=== PATIENT | female | born 1975 | race Two or more races ===

== ENCOUNTER 2016-08-28 05:32 | Day surgery (SDC) | payer OTHER ==
[2016-08-21 10:06] LABS: HEMATOCRIT 37.1 % (36.0-47.0); HEMOGLOBIN 12.2 g/dL (12.0-15.5); HGB HCT DIFFERENCE -0.5; MEAN CORPUSCULAR HEMOGLOBIN 25.3 pg (27.0-33.4); MEAN CORPUSCULAR HGB CONC 32.7 g/dL (32.0-36.0); MEAN CORPUSCULAR VOLUME 77 fl (80-97); RED CELL DISTRIBUTION WIDTH 14.5 % (11.5-14.0); WHITE BLOOD COUNT 5.2 10^3/uL (4.0-10.5)
[2016-08-21 10:10] LABS: PROTHROMBIN TIME 13.2 SEC (11.4-15.4)
[2016-08-21 10:11] LABS: PARTIAL THROMBOPLASTIN TIME 26.4 SEC (23.5-35.8)
--- NOTE | 2016-08-21 20:02 | EKG REPORT ---
SEVERITY:- NORMAL ECG - SINUS RHYTHM : Confirmed by: Carlos Rodriguez 21-Aug-2016 20:01:21
[~2016-08-28 05:32] MED LIST: CEFAZOLIN 2 GM/D5W RTU 2 GM/50 ML RTUPB IV PRN; LIDOCAINE 0.5% INJ-PF (5 MG/ML) 50 ML SDV INJ PRN; RINGERS SOLUTION,LACTATED 1,000 ML IV PRN
[2016-08-28] MEDS ORDERED: EPHEDRINE SULFATE INJ 50 MG/1 ML AMPULE ONE (06:47)
[2016-08-28] MEDS ORDERED: FENTANYL CITRATE INJ/PF 250 MCG/5 ML AMPULE ONE (06:47)
[2016-08-28] MEDS ORDERED: MIDAZOLAM 2 MG/2 ML INJ ONE (06:47)
[2016-08-28] MEDS ORDERED: PROPOFOL INJ 200 MG/20 ML VIAL IV ONE (06:48)
[2016-08-28] MEDS ORDERED: DEXMEDETOMIDINE INJ 80 MCG/20 ML VIAL IV ONE (06:48)
[2016-08-28] MEDS ORDERED: FAMOTIDINE INJ/PF 20 MG/2 ML SDV IV ONE (06:59)
[2016-08-28] MEDS ORDERED: SCOPOLAMINE HYDROBROMIDE 1.5 MG PATCH.TD72 ONE (07:01)
[2016-08-28] MEDS ORDERED: BUPIVACAINE HCL 0.25 % INJ/PF (2.5 MG/1 ML) 30 ML VIAL ONE (07:16)
[2016-08-28] MEDS ORDERED: ACETAMINOPHEN 100 ML IV ONE (07:18)
[2016-08-28 07:35] LABS: HEMATOCRIT 35.4 % (36.0-47.0); HEMOGLOBIN 11.6 g/dL (12.0-15.5); HGB HCT DIFFERENCE -0.6; MEAN CORPUSCULAR HEMOGLOBIN 25.3 pg (27.0-33.4); MEAN CORPUSCULAR HGB CONC 32.9 g/dL (32.0-36.0); MEAN CORPUSCULAR VOLUME 77 fl (80-97); RED CELL DISTRIBUTION WIDTH 14.5 % (11.5-14.0); WHITE BLOOD COUNT 5.4 10^3/uL (4.0-10.5)
[2016-08-28 07:53] LABS: ANION GAP 12 (5-19); BLOOD UREA NITROGEN 15 mg/dL (7-20); CALCIUM 9.6 mg/dL (8.4-10.2); CARBON DIOXIDE 24 mmol/L (22-30); CHLORIDE 106 mmol/L (98-107); GLUCOSE 106 mg/dL (75-110); POTASSIUM 4.4 mmol/L (3.6-5.0); SODIUM 141.5 mmol/L (137-145)
[2016-08-28] MEDS ORDERED: MORPHINE SULFATE 10 MG/ML INJ IV PRN ×3 (08:02→11:23)
[2016-08-28] MEDS ORDERED: PROMETHAZINE HCL INJ 25 MG/1 ML VIAL IV PRN ×3 (08:02→11:25)
[2016-08-28] MEDS ORDERED: FENTANYL CITRATE INJ/PF 100 MCG/2 ML AMPUL IV PRN ×3 (08:02)
[2016-08-28] MEDS ORDERED: MEPERIDINE HCL/PF INJ 25 MG/1 ML DISP.SYRIN IV PRN (08:02)
[2016-08-28] MEDS ORDERED: OXYCODONE-ACETAMINOPHEN 5-325 MG TABLET PO PRN ×2 (08:02)
[2016-08-28] MEDS ORDERED: DIPHENHYDRAMINE HCL 50 MG/ML VIAL IV PRN (08:02)
[2016-08-28] MEDS ORDERED: ONDANSETRON HCL INJ/PF 4 MG/2 ML SDV IV PRN ×3 (08:02→12:55)
[2016-08-28] MEDS ORDERED: KETOROLAC TROMETHAMINE INJ/PF 30 MG/1 ML SDV ONE (10:30)
[2016-08-28] MEDS ORDERED: HYDROCODONE/ACETAMINOPHEN 5-325 MG TABLET PO PRN (11:22)
[2016-08-28] MEDS ORDERED: DEXAMETHASONE SOD PHOSPHATE INJ 4 MG/1 ML VIAL ONE (12:00)
[2016-08-28] MEDS ORDERED: NEOSTIGMINE METHYLSULFATE 10 MG/10 ML VIAL ONE (12:00)
[2016-08-28] MEDS ORDERED: SUCCINYLCHOLINE CHLORIDE INJ 200 MG/10 ML VIAL ONE (12:00)
[2016-08-28] MEDS ORDERED: LIDOCAINE 2% INJ-PF (20 MG/ML) 10 ML AMPUL ONE (12:00)
[2016-08-28] MEDS ORDERED: PHENYLEPHRINE HCL INJ/PF 10 MG/1 ML SDV ONE (12:00)
[2016-08-28] MEDS ORDERED: METOCLOPRAMIDE HCL INJ/PF 10 MG/2 ML SDV ONE (12:00)
[2016-08-28] MEDS ORDERED: GLYCOPYRROLATE INJ 0.4 MG/2 ML VIAL ONE (12:00)
[2016-08-28] MEDS ORDERED: ONDANSETRON HCL INJ/PF 4 MG/2 ML SDV ONE (12:00)
[2016-08-28] MEDS ORDERED: VECURONIUM BROMIDE INJ 10 MG VIAL IV ONE (12:00)
[2016-08-28] MEDS: KETOROLAC TROMETHAMINE INJ/PF 30 MG/1 ML SDV IV SCH (17:55)
[2016-08-28] MEDS ORDERED: MAGNESIUM OXIDE PO SCH (18:00)
[2016-08-28] MEDS ORDERED: DOCUSATE SODIUM 100 MG CAPSULE PO SCH ×2 (22:00)
[2016-08-29] MEDS: KETOROLAC TROMETHAMINE INJ/PF 30 MG/1 ML SDV IV SCH ×2 (00:52→05:49)
[2016-08-29 08:49] VITALS: BP 131/86
[2016-08-29] MEDS ORDERED: NORETHINDRONE ACETATE 5 MG PO SCH (10:00)
[2016-08-29] MEDS ORDERED: BENAZEPRIL HCL 20 MG TABLET PO SCH (10:00)
[2016-08-29] MEDS ORDERED: CETIRIZINE 10 MG TABLET PO SCH (10:00)
[2016-08-29] MEDS ORDERED: CARVEDILOL 12.5 MG TABLET PO SCH (10:00)
--- NOTE | 2016-09-05 13:44 | OPERATIVE REPORT E ---
Operative Report NAME: FARIDEH NELSON : 1975 AGE: 40Y DATE OF SURGERY: 08/28/2016 ROOM: 223 INDICATIONS: This is a 40-year-old female with a symptomatic fibroid uterus, but normal endometrial biopsy and Pap, who has had heavy menstrual bleeding in the past requiring . After discussing options for treatment, the patient desires definitive management for large known fibroid uterus approximately 14 weeks in size. After discussing the risks, benefits, alternatives, and indications, the patient desires to proceed with robotic-assisted total laparoscopic hysterectomy and bilateral salpingectomy for removal of large fibroid uterus. PREOPERATIVE DIAGNOSES: 1. Symptomatic fibroid uterus. 2. Anemia. POSTOPERATIVE DIAGNOSES: 1. Symptomatic fibroid uterus. 2. Anemia. OPERATIONS: 1. Robotic-assisted total laparoscopic hysterectomy and bilateral salpingectomy. 2. Robotic myomectomy. 3. Cystoscopy. SURGEON: ALEXEI PARMAR M.D. MOTION PICTURE NARRATOR: Lara Andersen M.D. ESTIMATED BLOOD LOSS: 150. TOTAL FLUIDS: 1500. URINE OUTPUT: 200. FINDINGS: 1. Large fibroid uterus, large posterior fibroid approximately 8 cm in diameter. 2. Normal-appearing bilateral ovaries and bilateral fallopian tubes. 3. Normal bladder with normal-appearing bilateral ureteral orifice with flow identified bilaterally postoperatively. 4. Normal abdominal cavity, normal omentum, normal small bowel and large bowel and liver with normal bilateral ureters without evidence of hydronephrosis. SPECIMENS: Uterus and separate large fibroid. PROCEDURE IN DETAIL: After confirming consent with the patient in the preoperative holding area, the patient was taken to the main OR where general anesthesia was found to be adequate. The patient was then prepped and draped in a sterile fashion and placed in the low lithotomy position on a Gelfoam pad and placed in steep Trendelenburg without any sliding noted. The patient was meticulously positioned making sure no impingements on the lower extremity nerves and arms were tucked, and the patient was placed with a padded chest wrap across her chest. At this point in time, an operative timeout was performed. The patient received 2 g of Ancef prior to incision. Attention was turned to the patient's vagina where the anterior lip of the cervix was grasped with a single-toothed tenaculum and the uterus was sounded to approximately 10 cm. A medium Vcare uterine manipulator was then brought onto the field and tip placed in the fundus and inflated. The Vcare cup was then attached to the cervix and all instruments were then removed from the vagina. Attention was turned to the patient's abdomen where a site approximately 5 cm superior to the umbilicus was infused with 0.25% Marcaine to the midline. A 12 mm incision was made vertically while tenting up the anterior abdominal wall. A Veress needle was then placed in the abdominal cavity with an appropriate drop in pressure to approximately 2 mmHg. The abdomen was then insufflated to approximately 15 mmHg with gas on high flow after which a 12 mm trocar was then placed into the abdomen blindly and then a laparoscope was placed to confirm proper placement without injury to intra-abdominal contents. At this point in time, the abdominal viscera and omentum were inspected and noted to be without injury and the findings were noted as above. Attention was then turned to the patient's right-hand side approximately 9 cm to the right and 2 cm superior to the midline incision. A spot was identified and infused with 0.25% Marcaine and approximately 10 mm incision was made for placement of 8 mm AirSeal port, which was placed under direct visualization without difficulty. Attention was then turned to the right lower quadrant approximately 7 cm lateral and inferior to the assistant distribution manager trocar port and infused with 0.25% Marcaine, marked and incised and a #1, 8 mm robotic port placed under direct visualization. Attention was then turned to the left-hand side where the #2 robotic port was then placed approximately 8 cm laterally and 2 cm superior to the midline incision after being infused with 0.25% Marcaine, marked and incised, and lastly, the #3 robotic arm was then placed approximately 10 cm lateral inferior to the #2 robotic arm infused with 0.25% Marcaine, marked and incised and placed under direct visualization without evidence of injury. At this point in time, robotic ports were all in place. The patient was placed in steep Trendelenburg position in preparation for docking. The robot was then side docked in a normal fashion. The #1 arm was armed with monopolar scissors, the #2 arm with fenestrated bipolar graspers, and the #3 arm with a Prograf. Attention was then turned to the uterus. Starting on the right-hand side, the fallopian tube was from the mesosalpinx using a combination of bipolar cautery and monopolar scissors. Once at the utero-ovarian ligament, it was cauterized x3 and taken down with monopolar scissors adjacent to the uterus as the anatomy was distorted on both the right- and left-hand side due to large fibroid uterus. The right broad ligament was then identified and sized and taken down anteriorly and posteriorly. The bladder flap was created on the anterior portion and then taken down to estimated junction of the internal os on the right-hand side. The broad ligament was opened on the right-hand side and the uterine artery was skeletonized down to the level of the Vcare cup manipulator and the right uterine artery coagulated x3 and cut. Attention was then turned to the left-hand side where the left fallopian tube was then from the mesosalpinx in a similar fashion using bipolar cautery and monopolar scissors. The left uterine ovarian artery was then coagulated x3 and incised and monopolar scissors taken down towards the broad ligament. The broad ligament was taken down on the left-hand side similar to the right-hand side and then the broad ligament opened. The broad ligament was then opened anterior and posterior and skeletonized and the left uterine artery was easily coagulated x3 on the left hand side and then cut. At this point in time, the cardinal ligaments were taken down both on the right hand and left-hand side, making sure to stay medial to the uterine Reji cup, allowing the cardinal ligament to fall laterally away from the uterus, making sure to maintain good distance from the ureters, which were identified prior to taking down the cardinal ligament. The incisions were noted across the Reji cup to bladder flap down the left-hand side to right-hand side and then the bladder swept inferiorly below the level of . At this point in time, a small incision was made anteriorly to verify position of the Vcare cup. Prior to making colpotomy, attention was turned to the right fibroid of the posterior portion of the uterus and myomectomy of the large fibroid posterior side was then performed using monopolar scissors and the large fibroid that was removed placed in the right pelvic brim. At this point in time, colpotomy was made circumferentially starting at anterior side and going to counterclockwise fashion until the uterus was from the top of the vagina. At this point in time, was able to grasp the uterus, and using assistance from the robot, the uterus was delivered vaginally after which the large posterior fibroid was delivered vaginally as well. Attention was turned to the vaginal cuff, which was irrigated copiously. At this point in time, the #1 arm was replaced with a Osmar SutureCut Needle Medical Director/Head Team Physician and the #2 arm replaced with a Prograf. Attention was turned to cuff, which was then closed with a 2-0 V-Loc suture in a running, non-locking fashion starting on the right-hand side, making sure to incorporate the uterosacral ligaments into the right apex and traveling to the left-hand side incorporating the left uterosacral ligament to the apex. At this point in time, the robotic portion of the surgery was completed. Attention was turned to the patient's vagina, which was then irrigated copiously. A small amount of oozing was noted and was placed across the cuff with good hemostasis noted. All instruments were removed from the patient's abdomen and all arms detached from the ports. The patient was placed on a level plane and cystoscopy was performed with the findings as noted above. Repeat look after cystoscopy showed no hydroureter with good hemostasis. was then removed from the side of the table. Attention was turned to the midline robotic port, which was then closed with interrupted suture of 0 Monocryl and UR6. The skin was then closed with interrupted suture of 4-0 Monocryl, Dermabond, and dressing was applied. The patient recovered from anesthesia without difficulty, placed on the table in supine position, and taken to the PACU in stable condition. All sponge, instrument, and needle counts were correct x2, and the patient tolerated the procedure well without difficulty. DICTATING PHYSICIAN: ALEXEI PARMAR M.D. [id number] PHY#: [id number] ID: [id number] JOB#: [id number] ACCT: [id number] cc:ALEXEI PARMAR M.D. >
== END 2016-08-29 12:23 | disposition home or self-care (01) ==
LOC: OROUT 05:32 → 2S 12:25 → OROUT 08-29 12:23
PROVIDERS: ATTEND Obstetrics & Gynecology
PROC: 0UTC4ZZ Resection of Cervix, Percutaneous Endoscopic Approach (ICD-10-PCS; 2016-08-28)
PROC: 0UT74ZZ Resection of Bilateral Fallopian Tubes, Percutaneous Endoscopic Approach (ICD-10-PCS; 2016-08-28)
PROC: 8E0W4CZ Robotic Assisted Procedure of Trunk Region, Percutaneous Endoscopic Approach (ICD-10-PCS; 2016-08-28)
PROC: 0UT94ZZ Resection of Uterus, Percutaneous Endoscopic Approach (ICD-10-PCS; principal; 2016-08-28 07:30)
DX: N72 Inflammatory disease of cervix uteri (principal); D25.2 Subserosal leiomyoma of uterus; D64.9 Anemia, unspecified; R10.2 Pelvic and perineal pain; I10 Essential (primary) hypertension; R73.03 Prediabetes; J30.2 Other seasonal allergic rhinitis; Z79.899 Other long term (current) drug therapy; Z88.3 Allergy status to other anti-infective agents
CPT/HCPCS: 58573; S2900; 36415; 80048; 81025; 82962; 840; 85027; 85610; 85730; 86850; 86870; 86900; 86901; 86920; 86922; 88307; 93005; 93010; 94762; 94799; J0131; J0330; J0690; J1100; J1885; J2250; J2370; J2405; J2704; J2765; J3010; J3490; S0028